=== PATIENT | female | born 1995 | race Two or more races ===

== ENCOUNTER 2024-04-27 19:48 | Emergency (ER) | payer OTHER ==
[~2024-04-27] VITALS: Ht 160 cm; Wt 117.9 kg
[2024-04-27 20:23] LABS: Basophils # (auto) 0.1 10 ^3/uL (0-0.2); Basophils % (auto) 0.4 % (0.0-2.0); Eosinophils # (auto) 0.2 10 ^3/uL (0-0.8); Eosinophils % (auto) 1.7 % (0.0-7.0); Hematocrit 40.3 % (36.0-46.0); Hemoglobin 13.5 g/dL (12.2-16.2); Lymphocytes # (auto) 4.3 10 ^3/uL (0.4-5.4); Lymphocytes % (auto) 30.4 % (10.0-50.0); Mean Corpuscular Hemoglobin 27.9 pg (28.0-32.0); Mean Corpuscular Hgb Conc. 33.5 g/dL (32.0-36.0); Mean Corpuscular Volume 83.4 fL (80.0-100.0); Monocytes % (auto) 6.9 % (0.0-12.0); Neutrophils # (auto) 8.6 10 ^3/uL (1.6-8.6); Neutrophils % (auto) 60.6 % (37.0-80.0); Nucleated Red Blood Cells % 0.1 %; Red Blood Cells 4.84 10^6/uL (4.0-5.20); White Blood Cell 14.2 10^3/uL (4.4-10.8)
[2024-04-27 20:25] LABS: Urine Bacteria FEW /hpf (None Seen); Urine Blood 3+ /uL (Negative); Urine Clarity Clear (Clear); Urine Color Colorless (Yellow); Urine Protein, UAD Negative (Negative); Urine Specific Gravity 1.012 (1.001-1.035); Urine Urobilinogen Normal (Negative); Urine WBC 6 /hpf (0 - 5)
[2024-04-27 20:44] LABS: Alanine Aminotransferase 26 U/L (7-40); Albumin 4.4 g/dL (3.2-4.8); Alkaline Phosphatase 109 U/L (46-116); Anion Gap 11 (5-15); Aspartate Aminotransferase 11 U/L (13-40); BUN/Creatinine Ratio 9.1 (10.0-20.0); Bilirubin, Total 0.2 mg/dL (0.2-1.0); Blood Urea Nitrogen 6 mg/dL (9-23); Calcium 9.7 mg/dL (8.7-10.4); Carbon Dioxide 26 mmol/L (20-30); Chloride 103 mmol/L (98-107); Glucose 105 mg/dL (74-106); Potassium 3.8 mmol/L (3.5-5.1); Sodium 140 mmol/L (136-145); Total Protein 7.7 g/dL (5.7-8.2)
[2024-04-27] MEDS ORDERED: ACET500T58 PO (21:15)
[2024-04-27] MEDS ORDERED: NITR-87 PO (21:15)
[2024-04-27] MEDS ORDERED: IBUP-1455 PO (21:15)
[2024-04-27] MEDS: ONDANSETRON ODT 4 MG TAB PO ONE (21:33)
[2024-04-27] MEDS: HYDROcodone-ACET 10/325MG TAB PO ONE (21:34)
[2024-04-27] MEDS: NITROFURANTOIN 100 mg CAP PO ONE (21:34)
[2024-04-27 21:45] VITALS: BP 122/75; PULSE 83; RESP 17; TEMP 98.7; O2SAT 98
== END 2024-04-27 21:47 | disposition home or self-care (01) ==
LOC: ER 19:48
DX: N93.8 Other specified abnormal uterine and vaginal bleeding (principal); R10.2 Pelvic and perineal pain; N39.0 Urinary tract infection, site not specified
CPT/HCPCS: 36415; 80053; 81001; 84702; 85025; 99284; Q0162